=== PATIENT | female | born 1985 ===

== ENCOUNTER 2018-08-26 01:24 | Emergency (ER) | payer SELFPAY ==
[2018-08-26 01:32] VITALS: BP 101/40
[2018-08-26] MEDS ORDERED: IBUPROFEN PO ONE (03:56)
--- NOTE | 2018-08-26 04:00 | Emergency Department Report ---
ED General Adult HPI - General Chief complaint: Abdominal Pain Stated complaint: LEFT SIDE PAIN Time Seen by Provider: 08/26/18 03:36 Source: patient Mode of arrival: Ambulatory Limitations: No Limitations - History of Present Illness Initial comments: 32-year-old -[place] female reports that she was playing fighting 3 days ago with her boyfriend and she heard a pop in her chest. Patient has had left- sided rib pain since then. Patient reports that the pain is worth of coughing lasting sneezy and turning to the left side. Patient reports she has not taken anything for pain. She reports the pain is a 6 out of 10 and is sharp and stabbing at times. -: days(s) (3) Location: chest (left ribs) Radiation: non-radiation Severity scale (0 -10): 6 Quality: stabbing, sharp Consistency: intermittent Improves with: none Worsens with: other (coughing,sneezing, laughing) Associated Symptoms: chest pain Treatments Prior to Arrival: none - Related Data Previous Rx's Medication Instructions Recorded Last Taken Type Ibuprofen [Motrin 600 MG tab] 600 mg PO Q8H PRN #15 tablet 08/26/18 Unknown Rx Allergies Allergy/AdvReac Type Severity Reaction Status Date / Time No Known Allergies Allergy Unverified 08/26/18 01:26 ED Review of Systems ROS: Stated complaint: LEFT SIDE PAIN Other details as noted in HPI Comment: All other systems reviewed and negative Constitutional: denies: chills, fever Eyes: denies: eye pain, eye discharge, vision change ENT: denies: ear pain, throat pain Respiratory: denies: cough, shortness of breath, wheezing Cardiovascular: denies: chest pain, palpitations Endocrine: no symptoms reported Gastrointestinal: denies: abdominal pain, nausea, diarrhea Genitourinary: denies: urgency, dysuria, discharge Musculoskeletal: denies: back pain, joint swelling, arthralgia Skin: denies: rash, lesions Neurological: denies: headache, weakness, paresthesias Psychiatric: denies: anxiety, depression ED Past Medical Hx - Past Medical History Previous Medical History?: No - Surgical History Past Surgical History?: No - Social History Smoking Status: Current Every Day Smoker Substance Use Type: None - Medications Home Medications: Home Medications Medication Instructions Recorded Confirmed Last Taken Type Ibuprofen [Motrin 600 MG tab] 600 mg PO Q8H PRN #15 tablet 08/26/18 Unknown Rx ED Physical Exam - General Limitations: No Limitations ED Course Vital Signs 08/26/18 08/26/18 01:29 04:04 Temperature 98 F Pulse Rate 65 Respiratory 16 16 Rate Blood Pressure 101/40 O2 Sat by Pulse 99 Oximetry ED Medical Decision Making - Radiology Data Radiology results: report reviewed Patient: STEVIE FRANKEL MR#: [id number] : 1985 Acct:[id number] Age/Sex: 32 / F ADM Date: 08/26/18 Loc: ED Attending Dr: Ordering Physician: MALLORY TAYLOR Date of Service: 08/26/18 Procedure(s): XR ribs UNI w PA chest 3+V LT Accession Number(s): [id number] cc: MALLORY TAYLOR Fluoro Time In Minutes: PROCEDURE: XR RIBS UNI W PA CHEST 3+V LT TECHNIQUE: Left rib radiographs, 3 views of the ribs, including PA chest. HISTORY: left rib pain, snapped and popped sound COMPARISONS: None . FINDINGS: Heart: Normal . Mediastinum/Vessels: Normal . Lungs: Normal . Pleural space: Normal . Pneumothorax: None . Bony thorax/ribs: No acute or displaced rib fractures. IMPRESSION: No acute abnormality of the chest and LEFT ribs. This document is electronically signed by Daryl Ulloa MD., August 26 2018 05:32:45 AM ET Transcribed By: CO Dictated By: DARYL ULLOA MD Electronically Authenticated By: DARYL ULLOA MD Signed Date/Time: 08/26/18 0534 DD/ 3 TD/TT: 08/26/184 Critical care attestation.: If time is entered above; I have spent that time in minutes in the direct care of this critically ill patient, excluding procedure time. ED Disposition Clinical Impression: Rib pain on left side Disposition: DC-01 TO HOME OR SELFCARE Is pt being admited?: No Does the pt Need Aspirin: No Condition: Stable Instructions: Costochondritis (ED) Additional Instructions: Take pain medication as prescribed. X-ray of her chest and ribs were negative. Follow-up with her primary care provider if symptoms persist or gets worse. Prescriptions: Ibuprofen [Motrin 600 MG tab] 600 mg PO Q8H PRN #15 tablet PRN Reason: Pain Referrals: SULTANA GLOVER MD [Primary Care Provider] - 3-5 Days Forms: Work/School Release Form(ED)
[2018-08-26 04:16] LABS: HCG Qualitative,Urine Negative (Negative)
--- NOTE | 2018-08-26 05:34 | XRay Report ---
PROCEDURE: XR RIBS UNI W PA CHEST 3+V LT TECHNIQUE: Left rib radiographs, 3 views of the ribs, including PA chest. HISTORY: left rib pain, snapped and popped sound COMPARISONS: None . FINDINGS: Heart: Normal . Mediastinum/Vessels: Normal . Lungs: Normal . Pleural space: Normal . Pneumothorax: None . Bony thorax/ribs: No acute or displaced rib fractures. IMPRESSION: No acute abnormality of the chest and LEFT ribs. This document is electronically signed by Daryl Tracy MD., August 26 2018 05:32:45 AM ET
== END 2018-08-26 06:15 | disposition home or self-care (01) ==
LOC: ED 01:24
DX: R07.81 Pleurodynia (principal); F17.200 Nicotine dependence, unspecified, uncomplicated
CPT/HCPCS: 81025; 99284